=== PATIENT | male | born 1925 | race Caucasian/White ===

== ENCOUNTER 2016-10-26 06:33 | Day surgery (SDC) | payer MEDICARE, BC | END 2016-10-26 10:50 | disposition home or self-care (01) | DX: C22.7 Other specified carcinomas of liver (principal); Z88.8 Allergy status to other drugs, medicaments and biological substances; Z79.899 Other long term (current) drug therapy; Z88.6 Allergy status to analgesic agent; Z79.82 Long term (current) use of aspirin ==